=== PATIENT | male | born 1960 | race Caucasian/White ===

== ENCOUNTER 2020-02-25 23:16 | Inpatient (IN) | payer OTHER ==
--- NOTE | 2020-02-26 00:07 | ED ---
Extremity Problem HPI - General Chief complaint: Extremity Problem,Nontraumatic Stated complaint: Arm swelling/poss infection Time Seen by Provider: 02/26/20 00:03 Source: patient, RN notes reviewed, old records reviewed Mode of arrival: ambulatory Limitations: no limitations - History of Present Illness Initial comments: This is a 59-year-old male DF for evaluation patient presents today for evaluation of significant left elbow pain and swelling left hand pain. Patient states he was seen in office yesterday where he had drainage of his left elbow he states test for simply is unsure of results symptoms of swelling bruising and pain is significantly increased. Denies fevers. MD Complaint: extremity pain, joint swelling -: days(s) Location: left, elbow History of Same: Yes -: Yes myalgia Radiation: none Severity scale (1-10): 8 Quality: aching Consistency: constant Improves with: nothing Worsens with: nothing Associated Symptoms: denies other symptoms - Related Data Allergies Allergy/AdvReac Type Severity Reaction Status Date / Time No Known Allergies Allergy Verified 02/25/20 23:27 Review of Systems ROS Statement: Those systems with pertinent positive or pertinent negative responses have been documented in the HPI. ROS Other: All systems not noted in ROS Statement are negative. Past Medical History Past Medical History: Myocardial Infarction ([place]) History of Any Multi-Drug Resistant Organisms: None Reported Past Surgical History: Coronary Bypass/CABG Additional Past Surgical History / Comment(s): open heart surgery x5 Past Psychological History: No Psychological Hx Reported Smoking Status: Former smoker Past Alcohol Use History: None Reported Past Drug Use History: None Reported General Exam Limitations: no limitations General appearance: alert, in no apparent distress Head exam: Present: atraumatic, normocephalic, normal inspection Eye exam: Present: normal appearance, PERRL, EOMI. Absent: scleral icterus, conjunctival injection, periorbital swelling ENT exam: Present: normal exam, mucous membranes moist Neck exam: Present: normal inspection. Absent: tenderness, meningismus, lymphadenopathy Respiratory exam: Present: normal lung sounds bilaterally. Absent: respiratory distress, wheezes, rales, rhonchi, stridor Cardiovascular Exam: Present: regular rate, normal rhythm, normal heart sounds. Absent: systolic murmur, diastolic murmur, rubs, gallop, clicks GI/Abdominal exam: Present: soft, normal bowel sounds. Absent: distended, tenderness, guarding, rebound, rigid Extremities exam: Present: normal inspection, full ROM, normal capillary refill, other (Left elbow bruising and swelling and edema as well as left hand swelling, patient does have puncture wounds states he did have drainage of left elbow). Absent: tenderness, pedal edema, joint swelling, calf tenderness Back exam: Present: normal inspection Neurological exam: Present: alert, oriented X3, CN II-XII intact Psychiatric exam: Present: normal affect, normal mood Skin exam: Present: warm, dry, intact, normal color. Absent: rash Course Vital Signs 02/25/20 23:20 Temperature 98.4 F Pulse Rate 86 Respiratory 18 Rate Blood Pressure 122/71 O2 Sat by Pulse 97 Oximetry - Reevaluation(s) Reevaluation #1: 02/26/20 01:13 Medical record is reviewed Reevaluation #2: 02/26/20 01:13 Spoke with [place] unable to get records patient's evaluation in which he did have aspiration of left elbow Reevaluation #3: 02/26/20 01:13 Patient's pain is improved - Consultations Consultation #1: Spoke with Dr. Hernandez admit patient Medical Decision Making - Medical Decision Making 59 male DF for evaluation patient presents today for evaluation regards to left elbow pain tenderness and swelling of left upper extremity patient does appear to have significant cellulitis or bruising of elbow with swelling of hand. Patient [place] for IV antibiotics - EKG Data -: EKG Interpreted by Me (EKG shows sinus rhythm of 83, OK 142, QRS 100, QTC 453) - Radiology Data Radiology results: report reviewed (X-ray left elbow is negative for acute disease), image reviewed Disposition Clinical Impression: Cellulitis of left elbow, Edema of left upper arm Disposition: ADMITTED IP TO THIS [facility] Condition: Good Is patient prescribed a controlled substance at d/c from ED?: No Referrals: Nonstaff,Physician [Primary Care Provider] - 1-2 days
[2020-02-26] MEDS ORDERED: LORazepam 2 MG/ML INJ IV PRN ×3 (00:43)
[2020-02-26] MEDS ORDERED: HYDROmorphone 1 MG/ML 1 ML SYRINGE IVP STA (00:43)
[2020-02-26] MEDS ORDERED: VANCOMYCIN IV PER PHARMACY 1 EACH MISC MISCELLANE PRN (00:43)
[2020-02-26] MEDS ORDERED: MORPHINE SULFATE 4 MG/ML SYRINGE IVP STA (00:43)
[2020-02-26] MEDS ORDERED: THIAMINE 100 MG/ML 2 ML VIAL IM STA (00:43)
[2020-02-26] MEDS ORDERED: SODIUM CHLORIDE 0.9% 1,000 ML IV STA (00:43)
[2020-02-26] MEDS ORDERED: VANCOMYCIN 1,500 MG in SODIUM CHLORIDE 0.9% 250 ML IVPB STA (00:48)
[2020-02-26] MEDS ORDERED: DEXAMETHASONE SOD PHOSPHATE 10 MG/ML 1 ML VIAL IV STA (00:48)
--- NOTE | 2020-02-26 01:15 | XR ---
EXAMINATION TYPE: XR elbow complete LT DATE OF EXAM: 02/26/2020 COMPARISON: NONE HISTORY: Elbow pain TECHNIQUE: 5 views FINDINGS: There is spurring on the radial head. There is some spurring of the humeral condyles. I see no fracture nor dislocation. There is no sign of joint effusion. There is some soft tissue swelling on the medial aspect of the elbow joint. 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 No fracture seen.
[2020-02-26 01:21] LABS: Basophils % (A) 0 %; Eosinophils # (A) 0.1 k/uL (0-0.7); Eosinophils % (A) 1 %; HCT 34.8 % (39.0-53.0); HGB 11.3 gm/dL (13.0-17.5); Lymphocytes # (A) 0.9 k/uL (1.0-4.8); Lymphocytes % (A) 8 %; MCH 31.9 pg (25.0-35.0); MCHC 32.4 g/dL (31.0-37.0); MCV 98.6 fL (80.0-100.0); Mean Platelet Volume 8.8; Monocytes # (A) 1.4 k/uL (0-1.0); Monocytes % (A) 12 %; Neutrophils # (A) 9.1 k/uL (1.3-7.7); Neutrophils % (A) 78 %; Platelet Count 191 k/uL (150-450); RBC 3.53 m/uL (4.30-5.90); RDW 14.1 % (11.5-15.5); WBC 11.6 k/uL (3.8-10.6)
[2020-02-26 01:30] LABS: Partial Thromboplastin Time 25.2 sec (22.0-30.0)
[2020-02-26 01:34] LABS: ALT 18 U/L (4-49); AST 31 U/L (17-59); African American GFR (CKD) >90 (>60 ml/min/1.73 sqM); Albumin 3.8 g/dL (3.5-5.0); Alkaline Phosphatase 94 U/L (38-126); Anion Gap 9 mmol/L; Blood Urea Nitrogen 11 mg/dL (9-20); Carbon Dioxide 25 mmol/L (22-30); Chloride 100 mmol/L (98-107); Creatine Kinase 39 U/L (55-170); Glucose 140 mg/dL (74-99); Magnesium 1.7 mg/dL (1.6-2.3); Non-African American GFR(CKD) >90 (>60 ml/min/1.73 sqM); Phosphorus 2.9 mg/dL (2.5-4.5); Potassium 4.7 mmol/L (3.5-5.1); Sodium 134 mmol/L (137-145); Total Protein 7.2 g/dL (6.3-8.2)
[2020-02-26 01:56] LABS: Erythrocyte Sedimentation Rate 18 mm/hr (0-15)
[2020-02-26] MEDS: MULTIVITAMINS, THERA 1 EACH TAB PO SCH (07:52)
[2020-02-26] MEDS ORDERED: VANCOMYCIN 1,500 MG in SODIUM CHLORIDE 0.9% 250 ML IVPB SCH (11:00)
[2020-02-26] MEDS: VANCOMYCIN 1,250 MG in SODIUM CHLORIDE 0.9% 250 ML IVPB SCH ×2 (11:04→23:01)
[2020-02-26] MEDS ORDERED: RX INFO: IV CONTRAST WAS GIVEN 1 EACH MISC MISCELLANE PRN (11:29)
--- NOTE | 2020-02-26 11:37 | P.CNOR ---
History of Present Illness - [facility] Consult date: 02/26/20 Consult reason: joint pain History of present illness: Patient is a pleasant 59-year-old male seen at bedside this morning consultation for left upper extremity pain at the elbow, forearm and wrist. He states he d eveloped left elbow pain this past 02/24/2020. He denies any trauma or injury to the elbow or left upper extremity. He states he is a recovering alcoholic and staying at [facility]. The pain progressed Wednesday where he presented to [facility] states that they performed a procedure which sounds like an aspiration. He has continued to have pain and stiffness at the elbow, forearm, wrist and hand. He is currently denying fever or chills. He is currently denying new numbness or tingling. He states it is a little improved since yesterday where he has been on IV antibiotics for the past 12 hours. He denies any other complaints or medical pumps. Review of systems is negative for fever, chills, chest pain, shortness breath, nausea, vomiting, dizziness, headaches, slurred speech, vision changes or other. Review of Systems All systems: negative Constitutional: Denies chills, Denies fever Eyes: denies blurred vision, denies pain Ears, nose, mouth and throat: Denies headache, Denies sore throat Cardiovascular: Denies chest pain, Denies shortness of breath Respiratory: Denies cough Gastrointestinal: Denies abdominal pain, Denies diarrhea, Denies nausea, Denies vomiting Musculoskeletal: Denies myalgias Integumentary: Denies pruritus, Denies rash Neurological: Denies numbness, Denies weakness Psychiatric: Denies anxiety, Denies depression Endocrine: Denies fatigue, Denies weight change Past Medical History Past Medical History: Myocardial Infarction ([place]) Last Myocardial Infarction Date:: december 2019 History of Any Multi-Drug Resistant Organisms: None Reported Past Surgical History: Coronary Bypass/CABG Additional Past Surgical History / Comment(s): open heart surgery x5 Past Psychological History: No Psychological Hx Reported Smoking Status: Former smoker Past Alcohol Use History: None Reported Past Drug Use History: None Reported - Past Family History Mother History Unknown: Yes Medications and Allergies Allergies Allergy/AdvReac Type Severity Reaction Status Date / Time No Known Allergies Allergy Verified 02/25/20 23:27 Physical Examination Inspection of the left upper extremity is atraumatic. There is no deformity. He has some mild swelling about the left elbow and olecranon area. There is no significant focal fluid collection or abscess appreciated throughout the left upper extremity. He has pain with passive range of motion including flexion extension at the elbow and wrist. The left upper extremity and elbow are not excessively hot to touch. There is no diffuse erythema. There are no open wounds. Motor and sensation is intact fully throughout the left upper extremity but limited due to pain. There is no paresthesia. There is no evidence of compartment syndrome. 2+ radial pulses present and less than 2 second capillary refill is present. Results - Labs Labs: Abnormal Lab Results - Last 24 Hours (Table) 02/26/20 02/26/20 02/26/20 Range/Units 01:15 01:15 01:15 WBC 11.6 H (3.8-10.6) k/uL RBC 3.53 L (4.30-5.90) m/uL Hgb 11.3 L (13.0-17.5) gm/dL Hct 34.8 L (39.0-53.0) % Neutrophils # 9.1 H (1.3-7.7) k/uL Lymphocytes # 0.9 L (1.0-4.8) k/uL Monocytes # 1.4 H (0-1.0) k/uL ESR 18 H (0-15) mm/hr Sodium 134 L (137-145) mmol/L Creatinine 0.63 L (0.66-1.25) mg/dL Glucose 140 H (74-99) mg/dL Plasma Lactic Acid Fredy 2.2 H* (0.7-2.0) mmol/L Creatine Kinase 39 L (55-170) U/L C-Reactive Protein 86.0 H (<10.0) mg/L H & H 02/26/20 Range/Units 01:15 Hgb 11.3 L (13.0-17.5) gm/dL Hct 34.8 L (39.0-53.0) % Coagulation 02/26/20 Range/Units 01:15 INR 1.0 (<1.2) Result Diagrams: 02/26/20 01:15 02/26/20 01:15 Assessment and Plan (1) Cellulitis of left elbow Narrative/Plan: This patient has been reviewed with Dr. Becker. We Recommend continued IV antibiotics as well as elevation. We will order a stat CT with contrast of the left upper extremity to assess for possible pathology requiring surgical intervention. We'll continue to monitor him closely and make further recomme ndations as appropriate. Current Visit: Yes Status: Acute Priority: Medium Code(s): L03.114 - CELLULITIS OF LEFT UPPER LIMB SNOMED Code(s): 220340930 Time with Patient: Less than 30
[2020-02-26] MEDS: MORPHINE SULFATE 4 MG/ML SYRINGE IVP PRN ×2 (11:42→20:33)
--- NOTE | 2020-02-26 13:44 | CT ---
EXAMINATION TYPE: CT upper extremity LT w con DATE OF EXAM: 02/26/2020 COMPARISON: Left elbow radiographs dated 02/26/2020 HISTORY: arm, elbow, wrist pain, swelling, cellulitis, decreased range of motion CT DLP: 1478.3 mGycm Automated exposure control for dose reduction was used. CONTRAST: Performed with IV Contrast, patient injected with 100 mL of Isovue 370. FINDINGS: No acute fracture or dislocation is seen of the left shoulder. Mild acromioclavicular arthropathy wit h small marginal osteophytes. No suspicious osseous lesion of the left shoulder. The visualized left ribs demonstrate an old fracture deformity of the lateral margin of rib 4 and questionably L5. There is mild sclerosis of the left humeral head likely from mild arthropathy. The left humeral shaft is un remarkable. There is a left elbow joint effusion and subcutaneous edema seen of the left elbow most pronounced do rsally. Osteophytic changes are seen of the left elbow joint without acute displaced fracture. The la rge [id number] does limit evaluation of bony detail. There is mild soft tissue swelling around the wrist without acute fracture seen. There is proliferati ve osseous change of the radiocarpal joints, radioulnar joint, and carpal carpal joints indicative of arthropathy. Findings are less pronounced of the distal interphalangeal joints. The left axillary and subclavian artery as well as the brachial artery, radial artery, and ulnar renata ry appear patent although limitation in evaluation of the distal ulnar and radial arteries given dimi nished contrast due to bolus timing and large area of interest. The visualized portions of the left lung demonstrates scattered areas of subsegmental atelectasis and motion artifact. Partial visualization of post-CABG changes of the heart. Minimal visualized portion s of the abdomen and pelvis are limited by patient motion. Surgical clips in the left inguinal region . Mild arthropathy of the left hip. IMPRESSION: 1. Complex left elbow joint effusion with overlying soft tissue tissue swelling and intramuscular enrique ma. No subcutaneous well-circumscribed fluid collection to suggest abscess. Given the complex joint e ffusion consideration should be for septic or aseptic joint effusion. Advanced arthropathy of the lef t elbow joint is seen. No acute fracture identified. 2. Moderate arthropathy of the left wrist and mild of the left glenohumeral joint.
--- NOTE | 2020-02-26 14:06 | HP ---
HISTORY AND PHYSICAL CHIEF COMPLAINT: Pain and swelling in the left elbow. HISTORY OF PRESENT ILLNESS: This is the first admission for this 59-year-old gentleman. Two or three days before coming in he developed some pain and swelling in the left elbow. There was no history of trauma. Yesterday it is believed that he had the joint aspirated. This may have been at [facility]. It grew worse and he came here. He has significant pain and decreased range of motion. REVIEW OF SYSTEMS: He has had no headaches, seizures, neurologic problems, chest pain, shortness of breath, cough, hemoptysis, etc. He has coronary artery disease and he has had 5 stents placed in the past. One sitting was in August of last year and the other was in December of this year. He has had no abdominal pain, nausea, vomiting, hematemesis, melena, hematochezia, jaundice, hepatitis, cirrhosis, hematuria, frequency, urgency, nocturia, renal failure, diabetes, etc. Past medical history, family history and personal and social histories reveal that he is not allergic to any medication. He is on atorvastatin, clopidogrel, folic acid, isosorbide mononitrate, losartan, metoprolol, montelukast, and pantoprazole. He has tried to stop smoking but still does smoke some. He is currently in [place] being treated for alcoholism. PHYSICAL EXAMINATION: Blood pressure 122/71, pulse 86, respirations of 18 and he is afebrile. In general, he appeared to be well developed, well nourished, no acute distress. Skin color is normal, skin is warm, dry. Lymph nodes not enlarged. Head, ears, eyes, nose, and throat were normal. Neck veins not distended. Thyroid is not enlarged. Chest is clear. Cardiac exam is normal. Abdomen is soft, nontender. Extremities demonstrate the left elbow slightly inflamed and very tender. He has an extremely poor range of motion. He is holding it at about 30 degrees of flexion and can hardly move it anymore than that in terms of flexion or extension and cannot internally or externally rotate the forearm. Pulses good. Left hand slightly edematous. IMPRESSION: 1. Probable pyarthrosis of the left elbow. 2. Coronary artery disease. 3. Chronic obstructive pulmonary disease. PLAN: 1. Bed rest. 2. IV fluids. 3. IV antibiotics. 4. Consult with Orthopedics. 5. Consult with Infectious Disease. MMODL / IJN: [id number] /
[2020-02-26] MEDS: METOPROLOL TARTRATE 25 MG TAB PO SCH ×2 (15:53→20:33)
[2020-02-26] MEDS: MONTELUKAST 10 MG TAB PO SCH (15:53)
[2020-02-26] MEDS: PANTOPRAZOLE 40 MG TABLET PO SCH (15:53)
[2020-02-26] MEDS: SODIUM CHLORIDE 0.9% 1,000 ML IV SCH (15:53)
[2020-02-26] MEDS: THIAMINE 100 MG TAB PO SCH (15:53)
[2020-02-26] MEDS: LOSARTAN 50 MG TAB PO SCH (15:53)
[2020-02-26] MEDS: ISOSORBIDE MONONITRATE ER 30 MG TAB.ER.24H PO SCH (15:53)
[2020-02-26] MEDS: CLOPIDOGREL 75 MG TAB PO SCH (15:53)
--- NOTE | 2020-02-26 23:58 | P.CONS ---
History of Present Illness - Reason for Consult Consult date: 02/26/20 left olecranon bursitis Requesting physician: David Hernandez - Chief Complaint left elbow pain x 2 days - History of Present Illness Patient is a 59-year-old male who with a past medical history significant for alcoholism currently at the [facility] for alcohol rehab for about a month now, patient mention that he woke up Wednesday morning that is 2 days before presented to the hospital with acute pain to the left elbow area patient denies having any history of any trauma patient was describing the pain to be more of a sharp almost 10 out of 10 in severity with no radiation denies any fever for the symptom had the patient was sent to [facility] with the patient did have a aspirate of the left elbow which was cloudy white count was 13,000 Gram stain was negative patient apparently was discharged back to rehab on antibiotics however the patient said he was unable to get them because of pharmacy closed, the patient mentioned that his left elbow pain continue get worse hence he has been brought to [facility] for evaluation on presented to the hospital patient has been afebrile patient did have mild elevated white count of 11.6 lactic acid was 2.2 and did have a CRP of 86 patient did have x-rays of the elbow with some osteoarthritis soft tissue swelling no fracture seen was seen by orthopedics who did ordered CT of the left upper extremity we did shows left elbow joint effusion subacute but no abscess formation the patient started on Rocephin vancomycin infectious disease was consulted for further recommendation about antibiotic therapy. Review of Systems Positive point has been mentioned in HPI rest of the systems are negative Past Medical History Past Medical History: Myocardial Infarction ([place]) Last Myocardial Infarction Date:: december 2019 History of Any Multi-Drug Resistant Organisms: None Reported Past Surgical History: Coronary Bypass/CABG Additional Past Surgical History / Comment(s): open heart surgery x5 Past Psychological History: No Psychological Hx Reported Smoking Status: Former smoker Past Alcohol Use History: None Reported Past Drug Use History: None Reported - Past Family History Mother History Unknown: Yes Medications and Allergies Home Medications Medication Instructions Recorded Confirmed Type Atorvastatin [Lipitor] 40 mg PO DAILY 02/26/20 02/26/20 History Clopidogrel [Plavix] 75 mg PO DAILY 02/26/20 02/26/20 History Folic Acid 1 mg PO DAILY 02/26/20 02/26/20 History Isosorbide Mononitrate ER [Imdur] 30 mg PO DAILY 02/26/20 02/26/20 History Losartan Potassium 50 mg PO DAILY 02/26/20 02/26/20 History Metoprolol Tartrate [Lopressor] 25 mg PO BID 02/26/20 02/26/20 History Montelukast [Singulair] 10 mg PO DAILY 02/26/20 02/26/20 History Pantoprazole [Protonix] 40 mg PO DAILY 02/26/20 02/26/20 History Allergies Allergy/AdvReac Type Severity Reaction Status Date / Time No Known Allergies Allergy Verified 02/26/20 13:20 Physical Exam Vitals: Vital Signs Temp Pulse Pulse Resp BP BP Pulse Ox 02/26/20 07:00 99.5 F 91 17 106/57 95 02/26/20 06:53 99.3 F 81 18 126/78 97 02/26/20 02:59 85 18 116/79 97 02/25/20 23:20 98.4 F 86 18 122/71 97 Intake and Output 02/25/20 02/26/20 02/26/20 22:59 06:59 14:59 Other: Weight 74.072 kg 74.072 kg GENERAL DESCRIPTION: Middle-aged male lying in bed, no distress. No tachypnea or accessory muscle of respiration use. HEENT: Shows Pallor , no scleral icterus. Oral mucous membrane is dry. NECK: Trachea central, no thyromegaly. LUNGS: Unlabored breathing. Clear to auscultation anteriorly. No wheeze or crackle. HEART: S1, S2, regular rate and rhythm. ABDOMEN: Soft, no tenderness , guarding or rigidity EXTREMITIES: Left elbow did have swelling and tender to touch no significant redness slightly warm though no open wound or any drainage. SKIN: No rash, no masses palpable. NEUROLOGICAL: The patient is awake, alert, oriented x3, mood and affect normal. Results CBC & Chem 7: 02/26/20 01:15 02/26/20 01:15 Labs: Abnormal Lab Results - Last 24 Hours (Table) 02/26/20 02/26/20 02/26/20 Range/Units 01:15 01:15 01:15 WBC 11.6 H (3.8-10.6) k/uL RBC 3.53 L (4.30-5.90) m/uL Hgb 11.3 L (13.0-17.5) gm/dL Hct 34.8 L (39.0-53.0) % Neutrophils # 9.1 H (1.3-7.7) k/uL Lymphocytes # 0.9 L (1.0-4.8) k/uL Monocytes # 1.4 H (0-1.0) k/uL ESR 18 H (0-15) mm/hr Sodium 134 L (137-145) mmol/L Creatinine 0.63 L (0.66-1.25) mg/dL Glucose 140 H (74-99) mg/dL Plasma Lactic Acid Fredy 2.2 H* (0.7-2.0) mmol/L Creatine Kinase 39 L (55-170) U/L C-Reactive Protein 86.0 H (<10.0) mg/L Assessment and Plan Assessment: -patient presented to the hospital with left elbow pain they seem to have been sudden onset in this patient with no fever and no significant redness the area has been aspirated at [facility] and it was cloudy with only 13,000 white cells with a Gram stain and culture has been negative so far we will concern for possible olecranon bursitis versus crystal arthritis (1) Cellulitis of left elbow Current Visit: Yes Status: Acute Priority: Medium Code(s): L03.114 - CELLULITIS OF LEFT UPPER LIMB SNOMED Code(s): 575699529 Plan: 1-we will obtain uric acid level 2-vancomycin pharmacy to dose her with a target trough of 15 while watching her kidney function and Vanco trough closely. And Rocephin to continue while waiting for the culture to finalize We will follow on clinical condition and cultures to further adjust medication if needed Thank you for this consultation we will follow the patient along with you Time with Patient: Greater than 30
[2020-02-27] MEDS: SODIUM CHLORIDE 0.9% 1,000 ML IV SCH ×2 (01:31→08:28)
[2020-02-27] MEDS: VANCOMYCIN 1,250 MG in SODIUM CHLORIDE 0.9% 250 ML IVPB SCH ×2 (03:50→18:10)
[2020-02-27] MEDS: ATORVASTATIN 40 MG TAB PO SCH (08:21)
[2020-02-27] MEDS: MONTELUKAST 10 MG TAB PO SCH (08:21)
[2020-02-27] MEDS: FOLIC ACID 1 MG TAB PO SCH (08:21)
[2020-02-27] MEDS: THIAMINE 100 MG TAB PO SCH ×2 (08:21→17:16)
[2020-02-27] MEDS: MULTIVITAMINS, THERA 1 EACH TAB PO SCH (08:21)
[2020-02-27] MEDS: PANTOPRAZOLE 40 MG TABLET PO SCH (08:21)
[2020-02-27] MEDS: MORPHINE SULFATE 4 MG/ML SYRINGE IVP PRN (08:25)
[2020-02-27] MEDS: METOPROLOL TARTRATE 25 MG TAB PO SCH ×2 (08:33→21:05)
[2020-02-27] MEDS: ISOSORBIDE MONONITRATE ER 30 MG TAB.ER.24H PO SCH (08:33)
[2020-02-27] MEDS: LOSARTAN 50 MG TAB PO SCH (08:33)
[2020-02-27] MEDS: CLOPIDOGREL 75 MG TAB PO SCH (08:33)
--- NOTE | 2020-02-27 09:09 | P.PN ---
Subjective Progress Note Date: 02/27/20 The patient continues to complain of relatively severe left elbow, wrist, and finger pain. He has had minimal improvement despite IV antibiotics. He denies fever, chills, or generalized malaise. Objective - Vital Signs Vital signs: Vital Signs Temp 98.4 F 02/27/20 01:19 Pulse 71 02/27/20 01:19 Resp 18 02/27/20 01:19 BP 109/73 02/27/20 01:19 Pulse Ox 96 02/27/20 01:19 Intake & Output 02/26/20 02/27/20 02/27/20 18:59 06:59 18:59 Weight 74.072 kg Other: # Voids 5 - Exam A focused examination the left upper extremity was conducted. On inspection of the left elbow there is overlying erythema and swelling. He has pain with any attempted passive range of motion of the elbow. There is also swelling, erythema, and tenderness to palpation over the dorsum of the wrist. 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 Plan: Due to the patient's continued pain and swelling in the elbow I reaspirated that this morning. I aspirated close to 10 mL's of thick purulent fluid. This was sent to the lab for analysis. Since the patient is continuing to complain of fairly significant pain and had grossly purulent fluid drawn from his elbow I think it would be in his best interest to have a formal incision and drainage in the operating room. His left wrist is also swollen and tender so I recommended an aspiration under anesthesia and if there is any concern performing an incision and drainage of the wrist as well. We will plan on surgery later this morning or early afternoon whenever and OR is available. The patient heart he has pre-existing moderate to severe elbow arthritis and is not systemically sick. Time with Patient: Greater than 30
[2020-02-27 09:40] LABS: Appearance,BF Cloudy; Color,BF Yellow; Nucleated Cells, Body Fluid 27600 /uL; RBC, Body Fluid 3000 /uL
[2020-02-27] MEDS ORDERED: IV FLUID CONTINUATION 1,000 ML IV ONE (09:49)
[2020-02-27] MEDS ORDERED: DEXAMETHASONE SOD PHOS (MDV) 100 MG/10 ML VIAL ONE (09:57)
[2020-02-27] MEDS ORDERED: LIDOCAINE 1% INJ 10MG/ML (20 ML MDV) ONE (09:57)
[2020-02-27] MEDS ORDERED: fentaNYL (PF) 50 MCG/ML 2 ML AMP ONE (09:57)
[2020-02-27] MEDS ORDERED: MIDAZOLAM 2 MG/2 ML VIAL ONE (09:57)
[2020-02-27] MEDS ORDERED: PROPOFOL 10 MG/ML 20 ML VIAL IV ONE (09:57)
[2020-02-27] MEDS ORDERED: ePHEDrine SULFATE/0.9% NACL/PF 50 MG/5 ML SYRINGE IV ONE (09:57)
[2020-02-27] MEDS ORDERED: ONDANSETRON 4 MG/2 ML VIAL ONE (09:57)
[2020-02-27] MEDS ORDERED: VANCOMYCIN TROUGH DUE 1 EACH MISC MISCELLANE ONE (10:00)
[2020-02-27 10:28] LABS: Mononuclear WBC,Body Fluid 8 %; Polynuclear WBC,Body Fluid 92 %; Total Cells Counted,Body Fluid 100
--- NOTE | 2020-02-27 11:30 | P.OP ---
Date of Procedure: 02/27/20 Preoperative Diagnosis: 1. Left elbow joint effusion, septic arthritis versus crystalline arthropathy 2. Left wrist joint effusion, septic arthritis versus crystalline arthropathy 3. Left second MCP joint effusion, septic arthritis versus crystalline arthropathy 4. Left third MCP joint effusion, septic arthritis versus crystalline arthropathy 5. Left fourth extensor compartment synovitis, infection versus crystalline arthropathy Postoperative Diagnosis: 1. Left elbow septic arthritis versus crystalline arthropathy 2. Left radiocarpal joint septic arthritis versus crystalline arthropathy 3. 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 Left third MCP joint septic arthritis versus crystalline arthropathy 5. Left fourth extensor compartment infection versus crystalline arthropathy Procedure(s) Performed: 1. Left elbow incision and drainage with irrigation and debridement (sharp debridement with a scalpel of nonviable skin, subcutaneous tissue down to the level of the elbow joint) 2. Left wrist incision and drainage with irrigation and debridement (sharp debridement with a scalpel of nonviable skin, subcutaneous tissue down to the level of the elbow joint) 3. Left second MCP joint incision and drainage with irrigation and de bridement(sharp debridement with a scalpel of nonviable skin, subcutaneous tissue down to the level of the elbow joint) 4. Left third MCP joint incision and drainage with irrigation and debridement(s harp debridement with a scalpel of nonviable skin, subcutaneous tissue down to the level of the elbow joint) 5. Left fourth extensor compartment exploration with irrigation and debridement (sharp debridement with a scalpel of nonviable skin and subcutaneous tissue down to the level of the tendon sheath) Anesthesia: JIE Surgeon: Marty Becker Data Entry Technician #1: Jabari Hebert Estimated Blood Loss (ml): 50 IV fluids (ml): 100 Pathology: other (Multiple cultures and tissue samples taken) Condition: stable Disposition: PACU Indications for Procedure: The patient is a very pleasant 59-year-old male with multiple medical problems including recurrent cigarette smoker and alcoholic and rehab who initially presented to [facility] with left elbow pain. He had an aspiration was sent home on oral antibiotics. He had continued and worsening pain in the elbow and wrist and presented to our emergency department. He was admitted under internal medicine and orthopedic consult was placed. A CT with contrast showed a large effusion in the elbow joint, that the radiologist raises suspicion for possible infection. He failed to improve with IV antibiotics. A repeat aspiration was performed earlier today of the elbow showed a large amount of gouty fluid. I discussed continued observation versus formal exploration and debridement in the operating room. The patient and I both agreed to explore and debride the symptom addict joints. We discussed potential risks and complications including but not limited to risk of anesthesia, infection, delayed wound healing, damage to local blood vessels or nerves, the PIN nerve palsy, lateral ulnar collateral ligament damage, need for further surgery, inability to regain preinjury level of function, worsening infection requiring amputation, systemic illness, and possibly . The patient understands of all these are the most common complications other less common Occasions are possible. He also understands that he is at a higher risk of having a complication due to his cigarette smoking and alcohol abuse. Operative Findings: There was a large collection of thick, cloudy yellow fluid in the elbow joint. There was a large collection of thick cloudy fluid in the radiocarpal joint of the wrist. The left second MCP joint had thick, chalky white fluid consistent with chronic tophaceous gout. The left third MCP joint had a large collection of thick, cloudy fluid. Description of Procedure: The patient was identified in preoperative holding and the correct left arm was marked with my initials. I reviewed the consent form with the patient and all of his questions were answered. The patient was then brought back to the operating room. A general anesthetic and preoperative antibiotics were given after he was transferred onto an or table. A tourniquet was applied to the proximal aspect of the left arm. The left arm was then prepped and draped in the standard sterile fashion. It was placed on an arm table. Prior to starting surgery timeout was performed identifying the correct patient, operative extremity, and procedure. I began by performing a Dash posterolateral approach to the elbow. The lateral epicondyle and radial head were palpated and an incision was marked out with a marker. Skin incision was made with a scalpel. Dissection was carried down carefully to the subcutaneous tissue. The ECU and anconeus interval was exploited. The lateral aspect of the elbow joint was incised and there was a large delacruz of cloudy yellow fluid. This was swabbed and sent for cultures. Retractors were placed in sterile saline was used to thoroughly irrigate the joint with cystoscopy tubing. All nonviable skin and subcu tissues tissue was sharply debrided with a scalpel down to the level of the joint. A deep drain was placed and the wound was closed in layers. Attention was then turned to the dorsal wrist. A longitudinal incision was made directly over Rani's tubercle and dissection was carried down carefully through the subcutaneous tissue. The extensor retinaculum was incised and I bluntly developed the interval between the third and fourth extensor compartments. The dorsal wrist capsule was sharply incised and there was a large delacruz of cloudy yellow fluid. This was swabbed and sent for cultures. A sharp debridement was performed using a scalpel of nonviable skin and subcutaneous tissue down to the level of the wrist joint. The joint was then thoroughly irrigated with sterile saline using cystoscopy tubing. The wound was gently closed in layers. A longitudinal incision was made in the second webspace. Dissection was carried down to the subcutaneous tissue with scissors. The ulnar aspect of the second MCP joint was sharply incised. There was a large amount of chalky white fluid consistent with chronic gout. This was sent for pathology and cultures. The wound was thoroughly irrigated with cystoscopy tubing using sterile saline. Using the same incision a longitudinal incision was made in the third webspace. There is a small amount of cloudy yellow fluid expressed which was swabbed and sent for culture. The wound was thoroughly irrigated with cystoscopy tubing and sterile saline. Nonviable skin and subcu tissues tissue was sharply debrided down to the level of both the second and third MCP joint with a scalpel. The fourth extensor compartment was explored and there was a small amount of inflamed synovium and yellow tinged fluid which was debrided with a scalpel and irrigated with sterile saline. After all wounds were closed the elbow drain was hooked up to a canister. Sterile dressings were applied. The patient was awoken from his anesthetic, transferred to a [place], and brought to recovery having tolerated the procedure well. Plan: Following debridement of all of his wounds and considering the multifocal joint involvement as well as the appearance of chalky white fluid obtained from the second MCP joint it is more likely that etiology is the result of crystalline arthropathy, but it is certainly possible to have septic arthritis in addition to crystalline arthropathy. I would like to start him on Indocin to see if there is a response. I will defer to infectious disease on the need, choice, round of administration and duration of antibiotics. We will pull his drain tomorrow and do a wound check.
[2020-02-27] MEDS ORDERED: HYDROmorphone 1 MG/ML 1 ML SYRINGE IVP ONE ×2 (11:51→11:57)
[2020-02-27 13:02] LABS: C Reactive Protein 60.2 mg/L (<10.0); Uric Acid 3.6 mg/dL (3.5-8.5)
[2020-02-27 13:05] LABS: Basophils % (A) 0 %; Eosinophils % (A) 0 %; HCT 28.1 % (39.0-53.0); Hypochromasia Moderate; Lymphocytes # (A) 0.9 k/uL (1.0-4.8); Lymphocytes % (A) 11 %; MCH 31.8 pg (25.0-35.0); MCHC 30.9 g/dL (31.0-37.0); Macrocytosis Slight; Mean Platelet Volume 9.2; Monocytes # (A) 0.5 k/uL (0-1.0); Monocytes % (A) 6 %; Neutrophils # (A) 7.2 k/uL (1.3-7.7); Neutrophils % (A) 82 %; Platelet Count 172 k/uL (150-450); RBC 2.73 m/uL (4.30-5.90); RDW 14.1 % (11.5-15.5); WBC 8.7 k/uL (3.8-10.6)
[2020-02-27 13:20] LABS: HGB 8.7 gm/dL (13.0-17.5); MCV 102.8 fL (80.0-100.0)
--- NOTE | 2020-02-27 15:21 | P.PN ---
Progress Note - Text Progress Note Date: 02/27/20 Dr. Hernandez was contacted to discuss placing the patient on Indomethacin, as he is also taking Plavix 75mg QD. Per Dr. Hernandez, patient is ok to start Indomethacin in addition to taking Plavix. Dr. Hernandez's recommended dose was Indomethacin 50mg PO TID for 3 days. This will be started today. We will defer further gout treatment to Dr. Hernandez, if it is needed. We will continue to follow intra-operative cultures and crystal analysis.
[2020-02-27] MEDS ORDERED: VANCOMYCIN 1,250 MG in SODIUM CHLORIDE 0.9% 250 ML IVPB SCH (16:00)
--- NOTE | 2020-02-27 16:54 | PN ---
PROGRESS NOTE DATE OF SERVICE: 02/27/2020 REASON FOR FOLLOWUP: Possible left elbow olecranon bursitis and cellulitis. INTERVAL HISTORY: The patient is currently afebrile. The patient mentioned his pain was improved. However, he did have an aspiration of his left elbow and was complaining of some discomfort afterwards. The patient denies having any chest pain or shortness of breath or cough. No abdominal pain. No diarrhea. PHYSICAL EXAMINATION: Blood pressure 141/83 with a pulse of 71, temperature 97.3. He is 93% on 3 L nasal cannula. General description is a middle-aged male lying in bed in no distress. RESPIRATORY SYSTEM: Unlabored breathing. Clear to auscultation anteriorly. HEART: S1, S2. Regular rate and rhythm. ABDOMEN: Soft. No tenderness. Left elbow did have minimal swelling; no significant redness; slightly tender. LABS: Hemoglobin 8.3, white count 8.7. CRP 60.2. Synovial fluid is cloudy with 27,000 white cells. Crystals are pending. DIAGNOSTIC IMPRESSION AND PLAN: Patient admitted to hospital with left elbow pain and swelling with concern about possible olecranon bursitis, status post . Will wait for the crystals and the cultures. Continue with Rocephin and the vancomycin. Monitor clinical course closely. MMODL / IJN: [id number] /
[2020-02-27] MEDS: INDOMETHACIN 25 MG CAP PO SCH ×2 (17:16→21:13)
--- NOTE | 2020-02-27 22:07 | PN ---
PROGRESS NOTE CHIEF COMPLAINT: Infection of the left elbow. HISTORY OF PRESENT ILLNESS: This gentleman is still having a great deal of pain in the elbow and can hardly move it at all. He is going today for incision and drainage. PHYSICAL EXAMINATION: He is afebrile. Chest is clear. Cardiac exam is normal. Abdomen is soft, nontender. His elbow is still slightly swollen and extremely tender. He has practically no range of motion. IMPRESSION: 1. Acute arthritis in the left elbow. 2. ? septic joint in the left elbow? PLAN: Surgery today. MMODL / IJN: [id number] /
[2020-02-28] MEDS ORDERED: VANCOMYCIN TROUGH DUE 1 EACH MISC MISCELLANE ONE (01:00)
[2020-02-28 01:29] LABS: African American GFR (CKD) >90 (>60 ml/min/1.73 sqM); Non-African American GFR(CKD) >90 (>60 ml/min/1.73 sqM)
[2020-02-28] MEDS: SODIUM CHLORIDE 0.9% 1,000 ML IV SCH ×4 (01:48→21:39)
[2020-02-28] MEDS: VANCOMYCIN 1,250 MG in SODIUM CHLORIDE 0.9% 250 ML IVPB SCH ×2 (01:48→09:07)
[2020-02-28] MEDS: INDOMETHACIN 25 MG CAP PO SCH ×3 (07:06→21:38)
[2020-02-28] MEDS: THIAMINE 100 MG TAB PO SCH ×2 (09:06→16:24)
[2020-02-28] MEDS: CLOPIDOGREL 75 MG TAB PO SCH (09:06)
[2020-02-28] MEDS: FOLIC ACID 1 MG TAB PO SCH (09:07)
[2020-02-28] MEDS: METOPROLOL TARTRATE 25 MG TAB PO SCH ×2 (09:07→21:38)
[2020-02-28] MEDS: MULTIVITAMINS, THERA 1 EACH TAB PO SCH (09:07)
[2020-02-28] MEDS: ATORVASTATIN 40 MG TAB PO SCH (09:07)
[2020-02-28] MEDS: MONTELUKAST 10 MG TAB PO SCH (09:07)
[2020-02-28] MEDS: LOSARTAN 50 MG TAB PO SCH (09:07)
[2020-02-28] MEDS: ISOSORBIDE MONONITRATE ER 30 MG TAB.ER.24H PO SCH (09:07)
[2020-02-28] MEDS: PANTOPRAZOLE 40 MG TABLET PO SCH (09:07)
--- NOTE | 2020-02-28 10:08 | P.PN ---
Subjective Progress Note Date: 02/28/20 This patient is a 59-year-old male that is status-post left elbow, wrist, second MCP joint, and third MCP joint incision and drainage with irrigation and debridement. Today's postoperative day #1. The patient is examined bedside this morning with Dr. Becker. Patient states his pain is slightly improved postoperatively. Synovial fluid analysis obtained yesterday showed uric acid crystals. We are c urrently following intraoperative cultures. The patient was placed on Indocin 50 mg 3 times a day total of 9 doses yesterday, which was discussed with Dr. Hernandez. The patient is otherwise feeling well this morning. There are no additional complaints. Vital signs stable. Objective - Vital Signs Vital signs: Vital Signs Temp 98.9 F 02/28/20 07:00 Pulse 80 02/28/20 07:00 Resp 17 02/28/20 07:00 BP 122/80 02/28/20 07:00 Pulse Ox 96 02/28/20 07:00 Intake & Output 02/27/20 02/28/20 02/28/20 18:59 06:59 18:59 Intake Total 600 730 Output Total 15 Balance 585 730 Intake: IV 300 Intake, IV Titration 250 250 Amount Vancomycin 1,250 mg In 250 Sodium Chloride 0.9% 250 ml @ 125 mls/hr IVPB Q8H JASPREET Rx#:[id number] Vancomycin 1,250 mg In 250 Sodium Chloride 0.9% 250 ml @ 125 mls/hr IVPB Q8H JASPREET Rx#:[id number] Oral 50 480 Output: Estimated Blood Loss 15 Other: Voiding Method Toilet # Voids 1 1 - Exam On examination, the patient is lying in bed in no apparent distress. He is alert and oriented 3. On inspection of the left upper extremity, the surgical dressing is removed and reveals 3 incisions with intact nylon sutures over the posterior lateral elbow, dorsal wrist, and dorsal second MCP joint. There is again present in the posterior lateral elbow with minimal output. There is no surrounding erythema, warmth, drainage from the incisions. There are no areas of fluctuance. Motor and sensory function are intact of the left upper extremity. Left upper extremity is warm and well-perfused with brisk capillary refill distally. Due to minimal output, the drain is removed bedside today. The patient tolerated this well. After examination, a new dressing is placed over the left upper extremity with nonadherent Adaptic, 4 x 4's, and fluff. - Labs CBC & Chem 7: 02/27/20 12:31 02/28/20 00:56 Labs: Abnormal Lab Results - Last 24 Hours (Table) 02/27/20 02/27/20 02/27/20 Range/Units 08:42 12:31 12:31 RBC 2.73 L (4.30-5.90) m/uL Hgb 8.7 L D (13.0-17.5) gm/dL Hct 28.1 L (39.0-53.0) % MCV 102.8 H (80.0-100.0) fL MCHC 30.9 L (31.0-37.0) g/dL Lymphocytes # 0.9 L (1.0-4.8) k/uL C-Reactive Protein (<10.0) mg/L Procalcitonin 0.10 H (0.02-0.09) ng/mL Synovial Crystals Seen H (None Seen) 02/27/20 Range/Units 12:31 RBC (4.30-5.90) m/uL Hgb (13.0-17.5) gm/dL Hct (39.0-53.0) % MCV (80.0-100.0) fL MCHC (31.0-37.0) g/dL Lymphocytes # (1.0-4.8) k/uL C-Reactive Protein 60.2 H (<10.0) mg/L Procalcitonin (0.02-0.09) ng/mL Synovial Crystals (None Seen) Microbiology - Last 24 Hours (Table) 02/27/20 11:32 Gram Stain - Preliminary Finger - Left First Wound Culture - Preliminary 02/27/20 11:32 Gram Stain - Preliminary Elbow - Left Wound Culture - Preliminary 02/26/20 01:15 Blood Culture - Preliminary Blood No Growth after 48 hours 02/27/20 11:32 Gram Stain - Preliminary Wrist - Left Wound Culture - Preliminary 02/27/20 08:42 Gram Stain - Preliminary Aspirate Body Fluid Culture - Preliminary 02/26/20 14:10 Blood Culture - Preliminary Blood No Growth after 24 hours Assessment and Plan Assessment: Crystalline arthropathy; left elbow, left wrist, 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 Etiology appears to be related to crystalline arthropathy, although we will continue to follow intraoperative cultures closely. - We will defer antibiotic administration to infectious disease. We will defer gout treatment to internal medicine, patient currently receiving Indocin 50mg TID for a total of 9 doses. - Daily dressing changes to left upper extremity with non-adherent adaptic, 4x4s, and fluff. - We will continue to follow patient peripherally as he remains inpatient and make recommendations as needed. He should follow-up in the office in 1 week for a wound check.
--- NOTE | 2020-02-28 12:28 | CDI ---
Documentation Clarification Form Date: 02/28/2020 11:05 AM From: Lydia Meredith RN CCDS Admit Date: 02/27/2020 01:27:00 PM Patient Name: Bean Cornell Visit Number: [id number] Discharge Date: ATTENTION: The Clinical Documentation Specialists (CDI) and [facility] Coding Staff appreciate your assistance in clarifying documentation. Please respond to the clarification below the line at the bottom and electronically sign. The CDI & [facility] Coding staff will review the response and follow-up if needed. Please note: Queries are made part of the Legal Health Record. If you have any questions, please contact the author of this message via ITS. Dr. Marty Becker Per your Procedure Note 02/26, a debridement was performed on Left elbow, Left wrist, Left second MCP, Left third MCP, Left fourth extensor compartment History/Risk Factors: 59-year-old male presented to [facility] with left elbow pain. An aspiration was done and was sent home on oral antibiotics. The pain worsened in the elbow and wrist, so he came to [facility]. Medical history [place] 12/21, CABG, recurrent cigarette smoker and alcoholic Clinical Indicators: 02/25 CT of left arm complex left elbow joint effusion with overlying soft tissue swelling and intramuscular edema. Moderate arthropathy of the left wrist and mild of the left glenohumeral joint Treatment: 1.Left elbow incision and drainage with irrigation and debridement (sharp debridement with a scalpel of nonviable skin, subcutaneous tissue down to the level of the elbow joint) 2.Left wrist incision and drainage with irrigation and debridement (sharp debridement with a scalpel of nonviable skin, subcutaneous tissue down to the level of the elbow joint) 3.Left second MCP joint incision and drainage with irrigation and debridement (sharp debridement with a scalpel of nonviable skin, subcutaneous tissue down to the level of the second and third MCP joint with scalpel) 4.Left third MCP joint incision and drainage with irrigation and debridement (sharp debridement with a scalpel of nonviable skin, subcutaneous tissue down to the level of the second and third MCP joint with scalpel) 5.Left fourth extensor compartment exploration with irrigation and debridement (sharp debridement with a scalpel of nonviable skin and subcutaneous tissue down to the level of the tendon sheath) Five elements required for accurate and compliant documentation of a debridement: 1. Technique used (e.g., excisional, excised, cutting, etc.) 2. Instrument(s) used (e.g., scalpel, curette, etc.) 3. Nature of the tissue removed (e.g., necrotic, devitalized tissues, non- viable tissue, etc.) 4. Appearance and size of the wound (e.g., down to fresh bleeding tissue, 7cm x 10cm, etc.) 5. Depth of the debridement* (e.g., skin, subcutaneous tissue, fascia, muscle, bone, etc.) In order to capture the severity of condition and code the appropriate procedure; could you please document the following: Excisional debridement (the removal of necrotic, devitalized tissue or slough by means of cutting away of tissue) Non-excisional debridement (the removal of necrotic, devitalized tissue or slough by means of flushing, brushing, or washing. (Irrigation) Left elbow excisional debridement Left elbow non-excisional debridement Other; please specify Unable to determine Left wrist excisional debridement Left wrist non-excisional debridement Other, please specify Unable to determine Left second MCP joint excisional debridement Left second MCP joint non-excisional debridement Other, please specify Unable to determine Left third MCP joint excisional debridement Left third MCP joint non-excisional debridement Other, please specify Unable to determine Left fourth extensor compartment excisional debridement Left fourth extensor compartment non-excisional debridement Other, please specify Unable to determine (Last Revision: January 2018) EDWARDD
--- NOTE | 2020-02-28 20:29 | PN ---
PROGRESS NOTE CHIEF COMPLAINT: Infected left elbow. HISTORY OF PRESENT ILLNESS: This gentleman is having quite a bit of pain. Drain is in place. He has had no fever or chills. Cultures are pending. PHYSICAL EXAMINATION: Chest is clear. Cardiac exam is normal. Abdomen is soft, non-tender. The left arm is wrapped with an Christos wrap from the biceps down to the hand. IMPRESSION: Pyarthrosis of the left elbow. PLAN: Await other studies and culture reports. MMODL / IJN: [id number] /
--- NOTE | 2020-02-28 20:59 | PN ---
PROGRESS NOTE DATE OF SERVICE: 02/28/2020 REASON FOR FOLLOWUP: Left elbow cellulitis and gouty arthritis. INTERVAL HISTORY: The patient is currently afebrile. The patient is breathing comfortably. Denies having any chest pain or shortness of breath or cough. No abdominal pain or any worsening pain to the left elbow area. PHYSICAL EXAMINATION: Blood pressure 122/75, pulse of 87, temperature 98.3. He is 97% on room air. General description is a middle-aged male lying in bed in no distress. RESPIRATORY SYSTEM: Unlabored breathing. Clear to auscultation anteriorly. HEART: S1, S2. Regular rate and rhythm. ABDOMEN: Soft. No tenderness. Left elbow currently with some swelling but no redness or any drainage. LABS: Hemoglobin 8.7, creatinine 0.68. The left elbow joint fluid is showing DIAGNOSTIC IMPRESSION AND PLAN: Patient admitted to hospital with left elbow pain, likely gouty arthritis. Culture remains negative. We will discontinue the vancomycin and Rocephin and give a short course of oral Keflex and monitor clinical course closely. MMODL / IJN: [id number] /
[2020-02-28] MEDS: CEPHALEXIN 500 MG CAP PO SCH (21:38)
[2020-02-29] MEDS: MORPHINE SULFATE 4 MG/ML SYRINGE IVP PRN ×3 (05:54→21:26)
[2020-02-29] MEDS: CLOPIDOGREL 75 MG TAB PO SCH (09:54)
[2020-02-29] MEDS: THIAMINE 100 MG TAB PO SCH ×3 (09:54→17:35)
[2020-02-29] MEDS: MULTIVITAMINS, THERA 1 EACH TAB PO SCH (09:54)
[2020-02-29] MEDS: MONTELUKAST 10 MG TAB PO SCH (09:54)
[2020-02-29] MEDS: FOLIC ACID 1 MG TAB PO SCH (09:54)
[2020-02-29] MEDS: METOPROLOL TARTRATE 25 MG TAB PO SCH ×2 (09:54→21:15)
[2020-02-29] MEDS: LOSARTAN 50 MG TAB PO SCH (09:54)
[2020-02-29] MEDS: CEPHALEXIN 500 MG CAP PO SCH ×3 (09:54→21:15)
[2020-02-29] MEDS: ISOSORBIDE MONONITRATE ER 30 MG TAB.ER.24H PO SCH (09:54)
[2020-02-29] MEDS: INDOMETHACIN 25 MG CAP PO SCH ×3 (09:55→21:15)
[2020-02-29] MEDS: PANTOPRAZOLE 40 MG TABLET PO SCH (09:55)
[2020-02-29] MEDS: ATORVASTATIN 40 MG TAB PO SCH (09:55)
[2020-02-29] MEDS: SODIUM CHLORIDE 0.9% 1,000 ML IV SCH ×2 (10:22→21:19)
--- NOTE | 2020-02-29 12:29 | P.PN ---
Progress Note - Text Progress Note Date: 02/29/20 Orthopedics: History of present illness: Patient is a very pleasant 59-year-old male who is seen and examined the bedside for follow-up evaluation after undergoing incision and drainage with irrigation and debridement at the left elbow, left wrist, left second MCP joint, and left third MCP joint performed on 02/27/2020. Postoperatively he's had significant improvement of his pain overall. He feels he has better range of motion at the left elbow and in his left hand. He has less swelling in his left upper extremity. Patient continues to take indocin 50 mg 3 times a day as prescribed. Patient feels that he continues to improve he could be discharged home as early as tomorrow. He continues to be seen by medicine and infectious disease. He is currently on Keflex. He was receiving vancomycin and Rocephin which has been discontinued he continues to be seen by Dr. Hernandez in medicine. Cultures taken during surgical intervention have remained negative. Physical Exam: Patient is awake, alert, and oriented 3 Vital signs stable Good chest excursion with deep inspiration and expiration Dressings are taken down over the left upper extremity. Evidence of surgical incision sites at the left lateral posterior elbow, dorsal wrist, and dorsal 2nd/3rd MCP joint with nylon sutures remaining intact No active drainage from the surgical sites No significant pain with palpation over the surgical sites Patient is able to perform some active range of motion with the left elbow and fingers of the left hand without significant difficulty Evidence of continued swelling over the left hand and fingers Left upper extremity is generally warmer than the right upper extremity Mild generalized swelling at the left elbow No evidence of significant erythema or bruising around the surgical sites Dressing over the surgical sites is reapplied with Adaptic, 4 x 4's, stretch wrap, and Christos wrap Assessment: Status post incision and drainage with irrigation and debridement at the left elbow, left wrist, left second MCP joint, and left third MCP joint Left upper extremity pain and swelling, improving Likely gouty arthritis left upper extremity Left elbow cellulitis at presentation Plan: 1. Patient will continue with conservative treatment in regards to his left elbow, left wrist, left second third MCP joint, and left third MCP joint. Dressings have been removed and changing physical examination. Patient is experiencing less pain and swelling in the left upper extremity. He has better range of motion of the left elbow. Incision sites remain clean, dry, and intact. His symptoms have improved while taking Indocin and Keflex. He continues to be seen by medicine and infectious disease. Sutures at the surgical sites remain intact. At this time, given the patient's significant improvement postoperatively, patient will be cleared for discharge from an orthopedic standpoint. We discussed he should keep the dressing intact over the left upper extremity until this coming 03/02/2020. At that time he may remove the dressing. He may shower without a dressing intact at that time. We discussed he should try to keep his incision sites clean. He should avoid excessive activities with the left upper extremity. He should avoid soaking his left upper extremity in a tub or other standing water. We did discuss he should continue with medications as prescribed by medicine and infectious disease. Patient may continue with other wound care as needed at the discretion of infectious disease. We will plan to have him follow-up with Dr. Becker at [facility] in 10 days for suture removal. 2. Patient will continue to be seen and examined by Dr. Hernandez in medicine and Dr. Gle[place] in infectious disease
--- NOTE | 2020-02-29 13:46 | PN ---
PROGRESS NOTE DATE OF SERVICE: 02/29/2020 REASON FOR FOLLOWUP: Left elbow with cellulitis with underlying gouty arthritis. INTERVAL HISTORY: The patient is currently afebrile, patient is breathing comfortably. Patient denies having any chest pain or shortness of breath or cough. Left elbow pain is currently controlled. No nausea, no vomiting and no diarrhea. PHYSICAL EXAMINATION: Blood pressure 134/85 with a pulse of 86, temperature 98.1, he is 97% on room air. General description is a middle-aged male, lying in bed in no distress. RESPIRATORY SYSTEM: Unlabored breathing, clear to auscultation anteriorly. HEART: S1, S2. Regular rate and rhythm. ABDOMEN: Soft, no tenderness. LABS: Hemoglobin 8 1, white count 8.7. The left elbow culture so far negative. DIAGNOSTIC IMPRESSION AND PLAN: Patient with left elbow cellulitis with underlying gouty arthritis as uric acid crystal positive, culture has been negative. Continue Indocin and Keflex. Monitor clinical course closely. MMODL / IJN: [id number] /
--- NOTE | 2020-02-29 18:37 | PN ---
PROGRESS NOTE CHIEF COMPLAINT: Left elbow pyarthrosis. HISTORY OF PRESENT ILLNESS: This gentleman is doing much better. Pain is greatly improved as well as range of motion. He has had no fever or chills, and swelling is going down. PHYSICAL EXAMINATION: His chest is clear. Cardiac exam is normal. The abdomen is soft, nontender. The elbow is much improved. There is much less swelling and cellulitis and his range of motion is being surprisingly restored relatively quickly. Function in the hands normal. IMPRESSION: Pyarthrosis of the left elbow. PLAN: Continue with IV fluids and antibiotics and home when cleared by Surgery and Infectious Disease. MMODL / IJN: [id number] /
[2020-03-01] MEDS: MORPHINE SULFATE 4 MG/ML SYRINGE IVP PRN ×4 (01:17→15:31)
--- NOTE | 2020-03-01 07:21 | CDI ---
Documentation Clarification Form Date: 02/28/2020 11:05 AM From: Lydia Meredith RN CCDS Admit Date: 02/27/2020 01:27:00 PM Patient Name: Bean Cornell Visit Number: [id number] Discharge Date: ATTENTION: The Clinical Documentation Specialists (CDI) and [facility] Coding Staff appreciate your assistance in clarifying documentation. Please respond to the clarification below the line at the bottom and electronically sign. The CDI & [facility] Coding staff will review the response and follow-up if needed. Please note: Queries are made part of the Legal Health Record. If you have any questions, please contact the author of this message via ITS. Dr. Marty Becker Per your Procedure Note 02/26, a debridement was performed on Left elbow, Left wrist, Left second MCP, Left third MCP, Left fourth extensor compartment History/Risk Factors: 59-year-old male presented to [facility] with left elbow pain. An aspiration was done and was sent home on oral antibiotics. The pain worsened in the elbow and wrist, so he came to [facility]. Medical history [facility] 12[facility], CABG, recurrent cigarette smoker and alcoholic Clinical Indicators: 02/25 CT of left arm complex left elbow joint effusion with overlying soft tissue swelling and intramuscular edema. Moderate arthropathy of the left wrist and mild of the left glenohumeral joint Treatment: 1.Left elbow incision and drainage with irrigation and debridement (sharp debridement with a scalpel of nonviable skin, subcutaneous tissue down to the level of the elbow joint) 2.Left wrist incision and drainage with irrigation and debridement (sharp debridement with a scalpel of nonviable skin, subcutaneous tissue down to the level of the elbow joint) 3.Left second MCP joint incision and drainage with irrigation and debridement (sharp debridement with a scalpel of nonviable skin, subcutaneous tissue down to the level of the second and third MCP joint with scalpel) 4.Left third MCP joint incision and drainage with irrigation and debridement (sharp debridement with a scalpel of nonviable skin, subcutaneous tissue down to the level of the second and third MCP joint with scalpel) 5.Left fourth extensor compartment exploration with irrigation and debridement (sharp debridement with a scalpel of nonviable skin and subcutaneous tissue down to the level of the tendon sheath) Five elements required for accurate and compliant documentation of a debridement: 1. Technique used (e.g., excisional, excised, cutting, etc.) 2. Instrument(s) used (e.g., scalpel, curette, etc.) 3. Nature of the tissue removed (e.g., necrotic, devitalized tissues, non- viable tissue, etc.) 4. Appearance and size of the wound (e.g., down to fresh bleeding tissue, 7cm x 10cm, etc.) 5. Depth of the debridement* (e.g., skin, subcutaneous tissue, fascia, muscle, bone, etc.) In order to capture the severity of condition and code the appropriate procedure; could you please document the following: Excisional debridement (the removal of necrotic, devitalized tissue or slough by means of cutting away of tissue) Non-excisional debridement (the removal of necrotic, devitalized tissue or slough by means of flushing, brushing, or washing. (Irrigation) Left elbow excisional debridement Left elbow non-excisional debridement Other; please specify Unable to determine Left wrist excisional debridement Left wrist non-excisional debridement Other, please specify Unable to determine Left second MCP joint excisional debridement Left second MCP joint non-excisional debridement Other, please specify Unable to determine Left third MCP joint excisional debridement Left third MCP joint non-excisional debridement Other, please specify Unable to determine Left fourth extensor compartment excisional debridement Left fourth extensor compartment non-excisional debridement Other, please specify Unable to determine (Last Revision: January 2018) EDWARDD
[2020-03-01 08:28] VITALS: RESP 16
[2020-03-01] MEDS: MULTIVITAMINS, THERA 1 EACH TAB PO SCH (08:45)
[2020-03-01] MEDS: SODIUM CHLORIDE 0.9% 1,000 ML IV SCH (08:45)
[2020-03-01] MEDS: MONTELUKAST 10 MG TAB PO SCH (08:45)
[2020-03-01] MEDS: METOPROLOL TARTRATE 25 MG TAB PO SCH (08:45)
[2020-03-01] MEDS: LOSARTAN 50 MG TAB PO SCH (08:45)
[2020-03-01] MEDS: THIAMINE 100 MG TAB PO SCH ×2 (08:46→15:30)
[2020-03-01] MEDS: INDOMETHACIN 25 MG CAP PO SCH (08:46)
[2020-03-01] MEDS: PANTOPRAZOLE 40 MG TABLET PO SCH (08:46)
[2020-03-01] MEDS: CLOPIDOGREL 75 MG TAB PO SCH (08:46)
[2020-03-01] MEDS: CEPHALEXIN 500 MG CAP PO SCH ×2 (08:46→15:30)
[2020-03-01] MEDS: ISOSORBIDE MONONITRATE ER 30 MG TAB.ER.24H PO SCH (08:46)
[2020-03-01] MEDS: ATORVASTATIN 40 MG TAB PO SCH (08:46)
[2020-03-01] MEDS: FOLIC ACID 1 MG TAB PO SCH (08:46)
[2020-03-01 12:49] LABS: Basophils % (A) 0 %; Eosinophils # (A) 0.1 k/uL (0-0.7); Eosinophils % (A) 1 %; HCT 34.5 % (39.0-53.0); Hypochromasia Slight; Lymphocytes # (A) 1.2 k/uL (1.0-4.8); Lymphocytes % (A) 19 %; MCH 31.5 pg (25.0-35.0); MCHC 31.8 g/dL (31.0-37.0); MCV 99.1 fL (80.0-100.0); Mean Platelet Volume 8.7; Monocytes # (A) 0.6 k/uL (0-1.0); Monocytes % (A) 10 %; Neutrophils # (A) 4.3 k/uL (1.3-7.7); Neutrophils % (A) 68 %; Platelet Count 306 k/uL (150-450); RBC 3.48 m/uL (4.30-5.90); RDW 14.1 % (11.5-15.5); WBC 6.3 k/uL (3.8-10.6)
[2020-03-01 12:57] LABS: ALT 19 U/L (4-49); AST 27 U/L (17-59); African American GFR (CKD) >90 (>60 ml/min/1.73 sqM); Alkaline Phosphatase 71 U/L (38-126); Anion Gap 8 mmol/L; Blood Urea Nitrogen 8 mg/dL (9-20); Calcium 8.5 mg/dL (8.4-10.2); Carbon Dioxide 28 mmol/L (22-30); Chloride 102 mmol/L (98-107); Glucose 109 mg/dL (74-99); Non-African American GFR(CKD) >90 (>60 ml/min/1.73 sqM); Sodium 138 mmol/L (137-145); Total Bilirubin 0.3 mg/dL (0.2-1.3); Total Protein 6.1 g/dL (6.3-8.2)
--- NOTE | 2020-03-01 15:47 | PN ---
PROGRESS NOTE DATE OF SERVICE: 03/01/2020 REASON FOR FOLLOWUP: Left elbow cellulitis with underlying gouty arthritis. INTERVAL HISTORY: The patient is currently afebrile. The patient is feeling better. Breathing comfortably. The pain is comfortable. The left elbow has improved. No chest pain, shortness of breath. No cough, no abdominal pain, no diarrhea. PHYSICAL EXAMINATION: Blood pressure 146/83 with a pulse of 73, temperature 98.4. He is 98% on room air. General description is a middle-aged male up in the room in no distress. RESPIRATORY SYSTEM: Unlabored breathing, clear to auscultation anteriorly. HEART: S1, S2. Regular rate and rhythm. ABDOMEN: Soft, no tenderness. Left elbow is currently dressed up. LABS: Hemoglobin is 11.2, white count of 6.3, BUN of 8, creatinine 0.52. DIAGNOSTIC IMPRESSION AND PLAN: Patient with left elbow pain, likely underlying gouty arthritis and component of cellulitis/. Finish a short course of oral Keflex along with Indocin and continue supportive care. MMODL / IJN: [id number] /
[2020-03-01 16:26] VITALS: BP 120/76; PULSE 78; TEMP 98.6
--- NOTE | 2020-03-01 23:30 | DS ---
DISCHARGE SUMMARY CHIEF COMPLAINT: Pain in the left elbow. HISTORY OF PRESENT ILLNESS AND PHYSICAL EXAMINATION: Details of this man's history and physical can be found in the initial workup. LABORATORY STUDIES: While he was in the hospital he had laboratory studies, details of which can be found in the laboratory section of his chart. COURSE IN THE HOSPITAL: After admission he was placed on bedrest and started on intravenous fluids and was seen by Orthopedics. The joint was aspirated and then he was taken for an incision and drainage. He did very well postoperatively with a very rapid return to less pain, swelling and good range of motion. He was doing well and it was felt that he could be discharged and return home on his usual diet and activity. He will be seen in the office in several days. FINAL DIAGNOSES: 1. Acute inflammatory left elbow pyarthrosis, etiology unknown. 2. ? gouty arthritis. 3. ? pyarthrosis. OPERATION: Incision and drainage. CONSULTATIONS: 1. Orthopedics. 2. Infectious Disease. He is improved. MMODL / IJN: [id number] /
== END 2020-03-01 16:07 | DRG 511 ==
LOC: EC 23:16 → 4SSUR 02-26 03:37 → OBSVTOIN 02-27 13:27
PROVIDERS: ADMIT Family Medicine; ATTEND Family Medicine
PROC: 0LB80ZZ Excision of Left Hand Tendon, Open Approach (ICD-10-PCS; principal; 2020-02-29)
PROC: 0RBV0ZZ Excision of Left Metacarpophalangeal Joint, Open Approach (ICD-10-PCS; principal; 2020-02-29)
PROC: 0RBL0ZZ Excision of Right Elbow Joint, Open Approach (ICD-10-PCS; principal; 2020-02-29)
PROC: 0RBP0ZZ Excision of Left Wrist Joint, Open Approach (ICD-10-PCS; principal; 2020-02-29)
DX: M00.9 Pyogenic arthritis, unspecified (principal); L03.114 Cellulitis of left upper limb; F10.20 Alcohol dependence, uncomplicated; J44.9 Chronic obstructive pulmonary disease, unspecified; Z11.59 Encounter for screening for other viral diseases; I25.10 Atherosclerotic heart disease of native coronary artery without angina pectoris; F17.210 Nicotine dependence, cigarettes, uncomplicated; M1A.9XX1 Chronic gout, unspecified, with tophus (tophi); M65.9 Synovitis and tenosynovitis, unspecified; I25.2 Old myocardial infarction; Z79.02 Long term (current) use of antithrombotics/antiplatelets; Z79.899 Other long term (current) drug therapy; Z95.1 Presence of aortocoronary bypass graft; Z95.5 Presence of coronary angioplasty implant and graft
CPT/HCPCS: 36415; 80053; 80202; 82550; 82565; 83605; 83735; 84100; 84145; 84484; 84550; 85025; 85610; 85652; 85730; 86140; 87040; 87070; 87205; 87635; 89050; 89060; 93005; 96365; 96366; 96367; 96372; 96375; 99285